=== PATIENT | male | born 1995 ===

== ENCOUNTER 2018-02-18 12:22 | Emergency (ER) | payer OTHER ==
[2018-02-18 12:38] VITALS: RESP 18
--- NOTE | 2018-02-18 13:27 | C.PDOC ---
History Of Present Illness 23 year old male presents to ED complaining of multiple abscesses on his abdomen. Patient stated it started off as one small abscess and then spread after he squeezed one. Denies fever, chills, weakness, numbness. Time Seen by Provider: 02/18/18 12:42 Chief Complaint (Nursing): Abnormal Skin Integrity History Per: Patient History/Exam Limitations: no limitations Onset/Duration Of Symptoms: Days Current Symptoms Are (Timing): Still Present Past Medical History Reviewed: Historical Data, Nursing Documentation, Vital Signs Vital Signs: Last Vital Signs Temp 98.6 F 02/18/18 12:35 Pulse 97 H 02/18/18 12:35 Resp 18 02/18/18 12:35 BP 159/73 H 02/18/18 12:35 Pulse Ox 98 02/18/18 12:35 Surgical History: No Surg Hx Family History: States: No Known Family Hx - Social History Hx Alcohol Use: No Hx Substance Use: No - Immunization History Hx Tetanus Toxoid Vaccination: No Hx Influenza Vaccination: No Hx Pneumococcal Vaccination: No Review Of Systems Except As Marked, All Systems Reviewed And Found Negative. Constitutional: Negative for: Fever, Chills Skin: Positive for: Other (Multiple abscesses to abdomen.) Neurological: Negative for: Weakness, Numbness Physical Exam - Physical Exam Appears: Non-toxic, No Acute Distress Skin: Warm, Dry, Other (Three abscesses to left abdomen. One is draining and is slightly indurated. Small paupule to right upper chest.) Head: Atraumatic, Normacephalic Eye(s): bilateral: PERRL, EOMI Neck: Supple Chest: Symmetrical, No Deformity Cardiovascular: Rhythm Regular, No Murmur Respiratory: Normal Breath Sounds, No Rales, No Rhonchi, No Wheezing Neurological/Psych: Oriented x3 ED Course And Treatment O2 Sat by Pulse Oximetry: 98 (RA) Pulse Ox Interpretation: Normal Medical Decision Making Medical Decision Making: Plan: * Bactrim * Keflex Disposition - Disposition Referrals: [facility] [Outside] Disposition: HOME/ ROUTINE Disposition Time: 14:09 Condition: STABLE Additional Instructions: APPLY WARM COMPRESSES TO THE REGION 4-5 TIMES PER DAY. FOLLOW UP WITH THE MEDICAL DOCTOR WITHIN 1-2 DAYS, RETURN IF WORSENED. 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 - Scribe Statement The provider has reviewed the documentation as recorded by the Scribe Allen Sutherland All medical record entries made by the Tiburcioibe were at my direction and personally dictated by me. I have reviewed the chart and agree that the record accurately reflects my personal performance of the history, physical exam, medical decision making, and the department course for this patient. I have also personally directed, reviewed, and agree with the discharge instructions and disposition.
[2018-02-18] MEDS ORDERED: Tmp-Smz 800 mg-160 mg DS Tab PO STA (13:28)
[2018-02-18] MEDS ORDERED: Tmp-Smz 800 mg-160 mg DS Tab ONE (13:34)
[2018-02-18 14:14] VITALS: BP 144/76; PULSE 86; TEMP 98.7
[2018-02-19 21:07] VITALS: O2SAT 98
== END 2018-02-18 14:26 | disposition home or self-care (01) ==
LOC: C.ER 12:22
DX: L02.211 Cutaneous abscess of abdominal wall (principal); B95.8 Unspecified staphylococcus as the cause of diseases classified elsewhere